=== PATIENT | male | born 1960 | race Caucasian/White ===

== ENCOUNTER 2017-07-27 12:32 | Inpatient (IN) | payer OTHER ==
[2017-07-27 13:03] VITALS: BMI 28.7
--- NOTE | 2017-07-27 15:03 | HP ---
CIWA Score - CIWA Score Nausea/Vomitin Muscle Tremors: 3 Anxiety: 3 Agitation: 2 Paroxysmal Sweats: 1-Minimal Palms Moist Orientation: 0-Oriented Tacttile Disturbances: 2-Mild Itch/Numbness/Burn Auditory Disturbances: 1-Very Mild Visual Disturbances: 0-None Headache: 2-Mild CIWA-Ar Total Score: 17 Admission ROS BHS - HPI Chief Complaint: i need help to stop drinking alcohol and cocaine Allergies/Adverse Reactions: Allergies Allergy/AdvReac Type Severity Reaction Status Date / Time No Known Allergies Allergy Verified 07/27/17 15:02 History of Present Illness: this 56 years old male with alcohol and cocaine dependence,seeking detox, withdrawal symptom,seen in er at [place] last night after episode of syncope abrasion of nasal area last detox 02/14 in [facility] nicotine dependence longest period of sobriety 4 years Exam Limitations: No Limitations - Ebola screening Have you traveled outside of the country in the last 21 days: No Have you been sick,other than usual withdrawal symptoms: No - Review of Systems Constitutional: Loss of Appetite, Malaise, Night Sweats, Changes in sleep EENT: reports: Nose Congestion Respiratory: reports: No Symptoms reported Cardiac: reports: No Symptoms Reported GI: reports: Diarrhea, Nausea, Vomiting : reports: No Symptoms Reported Musculoskeletal: reports: Back Pain, Muscle Pain Neuro: reports: Headache, Tremors Endocrine: reports: No Symptoms Reported Hematology: reports: No Symptoms Reported Psychiatric: reports: No Sypmtoms Reported, Judgement Intact, Mood/Affect Appropiate, Orientated x3, other (schizoaffective disorder) Patient History - Patient Medical History Hx Anemia: No Hx Asthma: No Hx Chronic Obstructive Pulmonary Disease (COPD): No Hx Cancer: No Hx Cardiac Disorders: No Hx Congestive Heart Failure: No Hx Hypertension: No Hx Hypercholesterolemia: Yes (on med) Hx Pacemaker: No HX Cerebrovascular Accident: No Hx Seizures: No Hx Dementia: No Hx Diabetes: No Hx Gastrointestinal Disorders: No Hx Liver Disease: No Hx Genitourinary Disorders: No Hx Sexually Transmitted Disorders: No Hx Renal Disease (ESRD): No Hx Thyroid Disease: No Hx Human Immunodeficiency Virus (HIV): No (last 04/17 negative) Hx Hepatitis C: No Hx Depression: Yes Hx Suicide Attempt: Yes (jump in the traffice last 3 months ago) Hx Bipolar Disorder: No Hx Schizophrenia: Yes (schizoaffective disorder) - Patient Surgical History Past Surgical History: Yes Other Surgical History: surgery for fx of right face in 2009 treated at [facility],hearing loss 25% - PPD History Previous Implant?: Yes Documented Results: Negative w/proof - Smoking Cessation Smoking history: Current every day smoker Have you smoked in the past 12 months: Yes Aproximately how many cigarettes per day: 10 Cigars Per Day: 0 Hx Chewing Tobacco Use: No Initiated information on smoking cessation: Yes 'Breaking Loose' booklet given: 07/27/17 - Substance & Tx. History Hx Alcohol Use: Yes Hx Substance Use: Yes Substance Use Type: Alcohol, Cocaine Hx Substance Use Treatment: Yes (last 02/14 [facility]) - Substances Abused Alcohol Route: Oral Frequency: Daily Amount used: i pint of bacardi/6 pack of 16 ozs of beer Age of first use: 20 Date of Last Use: 07/26/17 Cocaine Route: Smoking Frequency: 1-2 times per week Amount used: 300$ Age of first use: 25 Date of Last Use: 07/26/17 Family Disease History - Family Disease History Family History: Denies Family Disease History: Other: Father (), Mother () Admission Physical Exam S - Vital Signs Vital Signs: Vital Signs - 24 hr 07/27/17 12:59 Temperature 97.9 F Pulse Rate 80 Respiratory 18 Rate Blood Pressure 121/67 - Physical General Appearance: Yes: Within Normal Limits, Moderate Distress, Tremorous, Irritable, Sweating, Anxious HEENTM: Yes: Normal ENT Inspection, CT, Pharynx Normal, Other (abraion of nasal area) Respiratory: Yes: Lungs Clear, Normal Breath Sounds, No Respiratory Distress Neck: Yes: Within Normal Limits, Supple, Trachea in good position Breast: Yes: Within Normal Limits Cardiology: Yes: Within Normal Limits, Regular Rhythm, Regular Rate, S1, S2 Abdominal: Yes: Within Normal Limits, Normal Bowel Sounds, Non Tender Genitourinary: Yes: Within Normal Limits Back: Yes: Within Normal Limits, Normal Inspection, Muscle Spasm Extremities: Yes: Within Normal Limits, Normal Range of Motion, Tremors Neurological: Yes: covered button maker II-XII NML intact, Alert, Motor Strength 5/5 Integumentary: Yes: Dry Lymphatic: Yes: Within Normal Limits - Diagnostic (1) Alcohol dependence with uncomplicated withdrawal Current Visit: Yes Status: Acute (2) Cocaine dependence Current Visit: Yes Status: Acute (3) Syncope Current Visit: Yes Status: Acute (4) Abrasion of nose Current Visit: Yes Status: Acute (5) Blister of hand Current Visit: Yes Status: Acute (6) Schizoaffective disorder Current Visit: Yes Status: Acute (7) Nicotine dependence Current Visit: Yes Status: Acute Cleared for Admission [facility] - Detox or Rehab [facility] Level of Care: Medically Managed Detox Regimen/Protocol: Librium [facility] Breath Alcohol Content Breath Alcohol Content: 0 Urine Drug Screen - Results Drug Screen Negative: No Urine Drug Screen Results: ARNAUD-Cocaine
[2017-07-27] MEDS ORDERED: ACETAMINOPHEN 325 MG TABLET (FP) PO PRN (15:55)
[2017-07-27] MEDS ORDERED: hydrOXYzine PAMOATE 50 MG CAPSULE (FP) PO PRN (15:55)
[2017-07-27] MEDS ORDERED: MENTHOL/PHENOL 1 EACH UD MM PRN (15:55)
[2017-07-27] MEDS ORDERED: LOPERAMIDE HCL 2 MG CAPSULE PO PRN (15:55)
[2017-07-27] MEDS ORDERED: MAG HYDROX/AL HYDROX/SIMETH 30 ML UNIT-DOSE CUP PO PRN (15:55)
[2017-07-27] MEDS ORDERED: P-EPHED 60MG/TRIPROLIDI 2.5MG TABLET PO PRN (15:55)
[2017-07-27] MEDS ORDERED: MAGNESIUM HYDROX 2400MG/30ML ORAL SUSPENSION 30 ML CUP PO PRN (15:55)
[2017-07-27] MEDS ORDERED: MAGNESIUM CITRATE 300 ML BOTTLE PO PRN (15:55)
[2017-07-27] MEDS ORDERED: guaiFENesin/D-METHORPHAN HB 10 ML UNIT-DOSE CUPS PO PRN (15:55)
[2017-07-27] MEDS ORDERED: chlordiazePOXIDE HCL 25 MG CAPSULE PO PRN (15:55)
[2017-07-27] MEDS ORDERED: IBUPROFEN 400 MG TABLET (FP) PO PRN (15:55)
[2017-07-27] MEDS ORDERED: chlordiazePOXIDE HCL 25 MG CAPSULE PO ONE (17:15)
[2017-07-27] MEDS ORDERED: chlordiazePOXIDE HCL 25 MG CAPSULE ONE (19:26)
[2017-07-27] MEDS ORDERED: MELATONIN 5 MG TABLETS PO PRN (22:00)
[2017-07-27] MEDS: BACITRACIN 0.9 GM PACKET TP SCH (22:36)
[2017-07-27] MEDS: THIAMINE HCL 100 MG TABLET (FP) PO SCH (22:36)
[2017-07-27] MEDS: chlordiazePOXIDE HCL 25 MG CAPSULE PO SCH (22:36)
[2017-07-28] MEDS: chlordiazePOXIDE HCL 25 MG CAPSULE PO SCH ×4 (06:38→22:12)
[2017-07-28 09:51] LABS: URINE APPEARANCE CLEAR; URINE BILIRUBIN NEGATIVE (<2.0 mg/dL); URINE BLOOD NEGATIVE (NEGATIVE); URINE COLOR LTYELLOW; URINE GLUCOSE (UA) NEGATIVE (NEGATIVE); URINE KETONE NEGATIVE (NEGATIVE); URINE LEUK ESTERASE NEGATIVE (NEGATIVE); URINE NITRITE NEGATIVE (NEGATIVE); URINE PROTEIN NEGATIVE (NEGATIVE); URINE UROBILINOGEN NEGATIVE mg/dL (0.2-1.0)
[2017-07-28 09:55] LABS: HEMATOCRIT 39.9 % (35.4-49); HEMOGLOBIN 13.7 GM/dL (11.7-16.9); MCH 30.9 pg (25.7-33.7); MCHC 34.2 g/dl (32.0-35.9); MEAN CELL VOLUME 90.3 fl (80-96); PLATELET COUNT 159 K/MM3 (134-434); RBC 4.42 M/mm3 (4.00-5.60); RDW 15.6 % (11.9-15.9); WHITE BLOOD COUNT 5.9 K/mm3 (4.0-10.0)
[2017-07-28 10:05] LABS: ALBUMIN 2.8 g/dl (3.4-5.0); ANION GAP 5 (8-16); BLOOD UREA NITROGEN 19 mg/dL (7-18); CALCIUM 7.8 mg/dL (8.5-10.1); CHLORIDE 111 mmol/L (98-107); CO2 27 mmol/L (21-32); GLUCOSE,RANDOM 108 mg/dL (74-106); SODIUM 143 mmol/L (136-145)
[2017-07-28 10:10] LABS: ALK PHOS 85 U/L (45-117); BILIRUBIN,TOTAL 0.3 mg/dL (0.2-1.0); SGOT/AST 41 U/L (15-37); SGPT/ALT 29 U/L (12-78); TOT PROT 6.1 g/dl (6.4-8.2)
[2017-07-28] MEDS: PRENATAL VITAMINS W/ FOLIC ACID TABLET (FP) PO SCH (10:54)
[2017-07-28] MEDS: BACITRACIN 0.9 GM PACKET TP SCH ×2 (10:54→22:12)
--- NOTE | 2017-07-28 12:15 | PN ---
S CIWA - CIWA Score Nausea/Vomitin Muscle Tremors: 3 Anxiety: 3 Agitation: 2 Paroxysmal Sweats: 1-Minimal Palms Moist Orientation: 0-Oriented Tacttile Disturbances: 1-Very Mild Itch/Numbness Auditory Disturbances: 1-Very Mild Visual Disturbances: 0-None Headache: 2-Mild CIWA-Ar Total Score: 16 BHS Progress Note (SOAP) Subjective: ALERT,IRRITABLE,ANXIOUS,INTERRUPTED SLEEP,TREMOR Objective: 07/28/17 12:13 Vital Signs Temperature 98.2 F 07/28/17 09:54 Pulse Rate 97 H 07/28/17 09:54 Respiratory Rate 18 07/28/17 09:54 Blood Pressure 137/97 07/28/17 09:54 O2 Sat by Pulse Oximetry (%) EKG NSR,NORMAL ECG PROLONG QT 392/429 NO CHEST PAIN,NO SOB,NO DIZZINESS Laboratory Last Values WBC 5.9 K/mm3 (4.0-10.0) 07/28/17 07:00 RBC 4.42 M/mm3 (4.00-5.60) 07/28/17 07:00 Hgb 13.7 GM/dL (11.7-16.9) 07/28/17 07:00 Hct 39.9 % (35.4-49) 07/28/17 07:00 MCV 90.3 fl (80-96) 07/28/17 07:00 MCH 30.9 pg (25.7-33.7) 07/28/17 07:00 MCHC 34.2 g/dl (32.0-35.9) 07/28/17 07:00 RDW 15.6 % (11.9-15.9) 07/28/17 07:00 Plt Count 159 K/MM3 (134-434) 07/28/17 07:00 MPV 8.0 fl (7.5-11.1) 07/28/17 07:00 Sodium 143 mmol/L (136-145) 07/28/17 07:00 Potassium 4.0 mmol/L (3.5-5.1) 07/28/17 07:00 Chloride 111 mmol/L (98-107) H 07/28/17 07:00 Carbon Dioxide 27 mmol/L (21-32) 07/28/17 07:00 Anion Gap 5 (8-16) L 07/28/17 07:00 BUN 19 mg/dL (7-18) H 07/28/17 07:00 Creatinine 1.0 mg/dL (0.7-1.3) 07/28/17 07:00 Creat Clearance w eGFR > 60 (>60) 07/28/17 07:00 Random Glucose 108 mg/dL (74-106) H 07/28/17 07:00 Calcium 7.8 mg/dL (8.5-10.1) L 07/28/17 07:00 Total Bilirubin 0.3 mg/dL (0.2-1.0) 07/28/17 07:00 AST 41 U/L (15-37) H 07/28/17 07:00 ALT 29 U/L (12-78) 07/28/17 07:00 Alkaline Phosphatase 85 U/L (45-117) 07/28/17 07:00 Total Protein 6.1 g/dl (6.4-8.2) L 07/28/17 07:00 Albumin 2.8 g/dl (3.4-5.0) L 07/28/17 07:00 Urine Color Ltyellow 07/28/17 07:00 Urine Appearance Clear 07/28/17 07:00 Urine pH 6.0 (5.0-8.0) 07/28/17 07:00 Ur Specific [place] 1.023 (1.001-1.035) 07/28/17 07:00 Urine Protein Negative (NEGATIVE) 07/28/17 07:00 Urine Glucose (UA) Negative (NEGATIVE) 07/28/17 07:00 Urine Ketones Negative (NEGATIVE) 07/28/17 07:00 Urine Blood Negative (NEGATIVE) 07/28/17 07:00 Urine Nitrite Negative (NEGATIVE) 07/28/17 07:00 Urine Bilirubin Negative (<2.0 mg/dL) 07/28/17 07:00 Urine Urobilinogen Negative mg/dL (0.2-1.0) 07/28/17 07:00 Ur Leukocyte Esterase Negative (NEGATIVE) 07/28/17 07:00 RPR Titer Nonreactive (NONREACTIVE) 07/28/17 07:00 Assessment: 07/28/17 12:15 WITHDRAWAL SYMPTOM Plan: CONTINUE DETOX
--- NOTE | 2017-07-28 12:29 | EKG ---
Test Reason : Blood Pressure : / mmHG Vent. Rate : 072 BPM Atrial Rate : 072 BPM P-R Int : 114 ms QRS Dur : 084 ms QT Int : 392 ms P-R-T Axes : 064 040 039 degrees QTc Int : 429 ms NORMAL SINUS RHYTHM NORMAL ECG NO PREVIOUS ECGS AVAILABLE Confirmed by CLAUDETTE HYATT MD ([id number]) on 07/28/2017 12:29:01 PM Referred By: Luis Fernando Oliveros Confirmed By:CLAUDETTE HYATT MD
--- NOTE | 2017-07-28 16:58 | CONSULT ---
[facility] Psychiatric Consult - Data Date of interview: 07/28/17 Admission source: [facility] Identifying data: First admission to [facility] for this 56 y/o male seeking detox treatment on for alcohol and cocaine dependence.Patient is single without children,homeless,unemployed and supported on SSI benefits. Substance Abuse History: Confirmed by patient.Details in current [facility] report : Smoking history: Current every day smoker. Have you smoked in the past 12 months: Yes. Aproximately how many cigarettes per day: 10. Cigars Per Day: 0. Hx Chewing Tobacco Use: No. Initiated information on smoking cessation: Yes. 'Breaking Loose' booklet given: 07/27/17. - Substance & Tx. History. Hx Alcohol Use: Yes. Hx Substance Use: Yes. Substance Use Type: Alcohol, Cocaine. Hx Substance Use Treatment: Yes (last 02/14 [facility]). - Substances Abused. Alcohol. Route: Oral. Frequency: Daily. Amount used: i pint of bacardi/6 pack of 16 ozs of beer. Age of first use: 20. Date of Last Use: 07/26/17. Cocaine. Route: Smoking. Frequency: 1-2 times per week. Amount used: 300$. Age of first use: 25. Date of Last Use: 07/26/17 Medical History: Patient endorses good general health.Noted history of dyslipidemia. Psychiatric History: History of 5-7 psychiatric hospitalizations ([facility]).Patient endorses the diagnosis of Schizoaffective Disorder.Prescribed abilify + zoloft + cogentin (no recall of doses).Mr Jenkins states that he is followed at [facility] in the [place].Presents with history of suicide attempts via deliberate jump into oncoming traffic (three months ago) and into the [place] (saved by [facility] and [facility]). Physical/Sexual Abuse/Trauma History: Not discussed.Patient declined. Additional Comment: Urine Drug Screen Results: ARNAUD-Cocaine.Noted. Mental Status Exam - Mental Status Exam Alert and Oriented to: Time, Place, Person Cognitive Function: Good Patient Appearance: Well Groomed Mood: Withdrawn (neutral) Affect: Appropriate, Normal Range Patient Behavior: Cooperative Speech Pattern: Clear Voice Loudness: Normal Thought Process: Intact, Goal Oriented Thought Disorder: Not Present Hallucinations: Denies Suicidal Ideation: Denies Homicidal Ideation: Denies Insight/Judgement: Poor Sleep: Well Appetite: Good Muscle strength/Tone: Normal Gait/Station: Normal Psychiatric Findings - Problem List ([place] 1, 2,3) (1) Alcohol dependence with uncomplicated withdrawal Status: Acute (2) Cocaine dependence Status: Acute (3) Nicotine dependence Status: Acute (4) Schizoaffective disorder Status: Chronic - Initial Treatment Plan Initial Treatment Plan: Psychoeducation.Detoxification.Medications : zoloft 50 mg po daily + cogentin 0.5 mg po daily + abilify 10 mg po daily.Side effects/ benefits of each medication are discussed with the patient.Mr Jenkins agrees with this plan of care.Observation.
[2017-07-28] MEDS: THIAMINE HCL 100 MG TABLET (FP) PO SCH (22:12)
[2017-07-29] MEDS: chlordiazePOXIDE HCL 25 MG CAPSULE PO SCH ×3 (05:40→18:01)
[2017-07-29] MEDS: ARIPiprazole 10 MG TABLET PO SCH (10:24)
[2017-07-29] MEDS: SERTRALINE HCL 50 MG TABLET (FP) PO SCH (10:24)
[2017-07-29] MEDS: BACITRACIN 0.9 GM PACKET TP SCH ×2 (10:24→22:13)
[2017-07-29] MEDS: PRENATAL VITAMINS W/ FOLIC ACID TABLET (FP) PO SCH (10:24)
[2017-07-29] MEDS: BENZTROPINE MESYLATE 0.5 MG TABLET (FP) PO SCH (11:00)
--- NOTE | 2017-07-29 11:58 | PN ---
S CIWA - CIWA Score Nausea/Vomitin Muscle Tremors: 3 Anxiety: 3 Agitation: 2 Paroxysmal Sweats: 1-Minimal Palms Moist Orientation: 0-Oriented Tacttile Disturbances: 1-Very Mild Itch/Numbness Auditory Disturbances: 1-Very Mild Visual Disturbances: 0-None Headache: 2-Mild CIWA-Ar Total Score: 16 BHS Progress Note (SOAP) Subjective: ALERT,IRRITABLE,ANXIOUS,INTERRUPTED SLEEP,PAIN IN THE BODY AND BACK Objective: 07/29/17 11:56 Vital Signs Temperature 97.5 F L 07/29/17 10:32 Pulse Rate 72 07/29/17 10:32 Respiratory Rate 18 07/29/17 10:32 Blood Pressure 117/71 07/29/17 10:32 O2 Sat by Pulse Oximetry (%) Laboratory Last Values WBC 5.9 K/mm3 (4.0-10.0) 07/28/17 07:00 RBC 4.42 M/mm3 (4.00-5.60) 07/28/17 07:00 Hgb 13.7 GM/dL (11.7-16.9) 07/28/17 07:00 Hct 39.9 % (35.4-49) 07/28/17 07:00 MCV 90.3 fl (80-96) 07/28/17 07:00 MCH 30.9 pg (25.7-33.7) 07/28/17 07:00 MCHC 34.2 g/dl (32.0-35.9) 07/28/17 07:00 RDW 15.6 % (11.9-15.9) 07/28/17 07:00 Plt Count 159 K/MM3 (134-434) 07/28/17 07:00 MPV 8.0 fl (7.5-11.1) 07/28/17 07:00 Sodium 143 mmol/L (136-145) 07/28/17 07:00 Potassium 4.0 mmol/L (3.5-5.1) 07/28/17 07:00 Chloride 111 mmol/L (98-107) H 07/28/17 07:00 Carbon Dioxide 27 mmol/L (21-32) 07/28/17 07:00 Anion Gap 5 (8-16) L 07/28/17 07:00 BUN 19 mg/dL (7-18) H 07/28/17 07:00 Creatinine 1.0 mg/dL (0.7-1.3) 07/28/17 07:00 Creat Clearance w eGFR > 60 (>60) 07/28/17 07:00 Random Glucose 108 mg/dL (74-106) H 07/28/17 07:00 Calcium 7.8 mg/dL (8.5-10.1) L 07/28/17 07:00 Total Bilirubin 0.3 mg/dL (0.2-1.0) 07/28/17 07:00 AST 41 U/L (15-37) H 07/28/17 07:00 ALT 29 U/L (12-78) 07/28/17 07:00 Alkaline Phosphatase 85 U/L (45-117) 07/28/17 07:00 Total Protein 6.1 g/dl (6.4-8.2) L 07/28/17 07:00 Albumin 2.8 g/dl (3.4-5.0) L 07/28/17 07:00 Urine Color Ltyellow 07/28/17 07:00 Urine Appearance Clear 07/28/17 07:00 Urine pH 6.0 (5.0-8.0) 07/28/17 07:00 Ur Specific [place] 1.023 (1.001-1.035) 07/28/17 07:00 Urine Protein Negative (NEGATIVE) 07/28/17 07:00 Urine Glucose (UA) Negative (NEGATIVE) 07/28/17 07:00 Urine Ketones Negative (NEGATIVE) 07/28/17 07:00 Urine Blood Negative (NEGATIVE) 07/28/17 07:00 Urine Nitrite Negative (NEGATIVE) 07/28/17 07:00 Urine Bilirubin Negative (<2.0 mg/dL) 07/28/17 07:00 Urine Urobilinogen Negative mg/dL (0.2-1.0) 07/28/17 07:00 Ur Leukocyte Esterase Negative (NEGATIVE) 07/28/17 07:00 RPR Titer Nonreactive (NONREACTIVE) 07/28/17 07:00 Assessment: 07/29/17 11:57 WITHDRAWAL SYMPTOM Plan: CONTINUE DETOX
[2017-07-29] MEDS: chlordiazePOXIDE 5 MG CAPSULE PO SCH (22:13)
[2017-07-29] MEDS: THIAMINE HCL 100 MG TABLET (FP) PO SCH (22:14)
[2017-07-30] MEDS: chlordiazePOXIDE 5 MG CAPSULE PO SCH ×3 (06:00→17:18)
[2017-07-30] MEDS: SERTRALINE HCL 50 MG TABLET (FP) PO SCH (10:05)
[2017-07-30] MEDS: PRENATAL VITAMINS W/ FOLIC ACID TABLET (FP) PO SCH (10:05)
[2017-07-30] MEDS: ARIPiprazole 10 MG TABLET PO SCH (10:05)
[2017-07-30] MEDS: BACITRACIN 0.9 GM PACKET TP SCH ×2 (10:05→22:32)
[2017-07-30] MEDS: BENZTROPINE MESYLATE 0.5 MG TABLET (FP) PO SCH (10:06)
--- NOTE | 2017-07-30 10:35 | PN ---
S Progress Note (SOAP) Subjective: ALERT,IRRITABLE,ANXIOUS,INTERRUPTED SLEEP Objective: 07/30/17 10:33 Vital Signs Temperature 97.7 F 07/30/17 09:24 Pulse Rate 85 07/30/17 09:24 Respiratory Rate 18 07/30/17 09:24 Blood Pressure 124/67 07/30/17 09:24 O2 Sat by Pulse Oximetry (%) Laboratory Last Values WBC 5.9 K/mm3 (4.0-10.0) 07/28/17 07:00 RBC 4.42 M/mm3 (4.00-5.60) 07/28/17 07:00 Hgb 13.7 GM/dL (11.7-16.9) 07/28/17 07:00 Hct 39.9 % (35.4-49) 07/28/17 07:00 MCV 90.3 fl (80-96) 07/28/17 07:00 MCH 30.9 pg (25.7-33.7) 07/28/17 07:00 MCHC 34.2 g/dl (32.0-35.9) 07/28/17 07:00 RDW 15.6 % (11.9-15.9) 07/28/17 07:00 Plt Count 159 K/MM3 (134-434) 07/28/17 07:00 MPV 8.0 fl (7.5-11.1) 07/28/17 07:00 Sodium 143 mmol/L (136-145) 07/28/17 07:00 Potassium 4.0 mmol/L (3.5-5.1) 07/28/17 07:00 Chloride 111 mmol/L (98-107) H 07/28/17 07:00 Carbon Dioxide 27 mmol/L (21-32) 07/28/17 07:00 Anion Gap 5 (8-16) L 07/28/17 07:00 BUN 19 mg/dL (7-18) H 07/28/17 07:00 Creatinine 1.0 mg/dL (0.7-1.3) 07/28/17 07:00 Creat Clearance w eGFR > 60 (>60) 07/28/17 07:00 Random Glucose 108 mg/dL (74-106) H 07/28/17 07:00 Calcium 7.8 mg/dL (8.5-10.1) L 07/28/17 07:00 Total Bilirubin 0.3 mg/dL (0.2-1.0) 07/28/17 07:00 AST 41 U/L (15-37) H 07/28/17 07:00 ALT 29 U/L (12-78) 07/28/17 07:00 Alkaline Phosphatase 85 U/L (45-117) 07/28/17 07:00 Total Protein 6.1 g/dl (6.4-8.2) L 07/28/17 07:00 Albumin 2.8 g/dl (3.4-5.0) L 07/28/17 07:00 Urine Color Ltyellow 07/28/17 07:00 Urine Appearance Clear 07/28/17 07:00 Urine pH 6.0 (5.0-8.0) 07/28/17 07:00 Ur Specific [place] 1.023 (1.001-1.035) 07/28/17 07:00 Urine Protein Negative (NEGATIVE) 07/28/17 07:00 Urine Glucose (UA) Negative (NEGATIVE) 07/28/17 07:00 Urine Ketones Negative (NEGATIVE) 07/28/17 07:00 Urine Blood Negative (NEGATIVE) 07/28/17 07:00 Urine Nitrite Negative (NEGATIVE) 07/28/17 07:00 Urine Bilirubin Negative (<2.0 mg/dL) 07/28/17 07:00 Urine Urobilinogen Negative mg/dL (0.2-1.0) 07/28/17 07:00 Ur Leukocyte Esterase Negative (NEGATIVE) 07/28/17 07:00 RPR Titer Nonreactive (NONREACTIVE) 07/28/17 07:00 Assessment: 07/30/17 10:34 WITHDRAWAL SYMPTOM Plan: CONTINUE DETOX,DISCHARGE IN AM
[2017-07-30] MEDS: THIAMINE HCL 100 MG TABLET (FP) PO SCH (22:32)
[2017-07-30] MEDS: chlordiazePOXIDE HCL 10 MG CAPSULE PO SCH (22:32)
[2017-07-31] MEDS: chlordiazePOXIDE HCL 10 MG CAPSULE PO SCH ×3 (06:42→18:07)
--- NOTE | 2017-07-31 08:33 | PN ---
S Progress Note (SOAP) Subjective: ALERT,NO COMPLAINT Objective: 07/31/17 08:29 Vital Signs Temperature 99.7 F H 07/30/17 22:07 Pulse Rate 86 07/30/17 22:07 Respiratory Rate 18 07/31/17 03:30 Blood Pressure 130/69 07/30/17 22:07 O2 Sat by Pulse Oximetry (%) Assessment: 07/31/17 08:29 DETOX COMPLETED,NO WITHDRAWAL SYMPTOM Plan: DISCHARGE TODAY,FOLLOW UP WITH AFTER CARE PROGRAM ARRANGEMENT
--- NOTE | 2017-07-31 08:38 | DS ---
[facility] Detox Discharge Summary Admission Date: 07/27/17 Discharge Date: 07/31/17 - History Present History: Alcohol Dependence, Cocaine Dependence Additional Comments: FOLLOW UP WITH AFTER CARE PROGRAM ARRANGEMENT Pertinent Past History: SYNCOPE ABRASION OF NOSE BLISTERS OF BOTH HANDS NICOTINE DEPENDENCE SCHIZOAFFECTVE DISORDER - Physical Exam Results Vital Signs: Vital Signs Temperature 99.7 F H 07/30/17 22:07 Pulse Rate 86 07/30/17 22:07 Respiratory Rate 18 07/31/17 03:30 Blood Pressure 130/69 07/30/17 22:07 O2 Sat by Pulse Oximetry (%) Pertinent Admission Physical Exam Findings: WITHDRAWAL SIGNS AND SYMPTOM Vital Signs Temperature 99.7 F H 07/30/17 22:07 Pulse Rate 86 07/30/17 22:07 Respiratory Rate 18 07/31/17 03:30 Blood Pressure 130/69 07/30/17 22:07 O2 Sat by Pulse Oximetry (%) Laboratory Last Values WBC 5.9 K/mm3 (4.0-10.0) 07/28/17 07:00 RBC 4.42 M/mm3 (4.00-5.60) 07/28/17 07:00 Hgb 13.7 GM/dL (11.7-16.9) 07/28/17 07:00 Hct 39.9 % (35.4-49) 07/28/17 07:00 MCV 90.3 fl (80-96) 07/28/17 07:00 MCH 30.9 pg (25.7-33.7) 07/28/17 07:00 MCHC 34.2 g/dl (32.0-35.9) 07/28/17 07:00 RDW 15.6 % (11.9-15.9) 07/28/17 07:00 Plt Count 159 K/MM3 (134-434) 07/28/17 07:00 MPV 8.0 fl (7.5-11.1) 07/28/17 07:00 Sodium 143 mmol/L (136-145) 07/28/17 07:00 Potassium 4.0 mmol/L (3.5-5.1) 07/28/17 07:00 Chloride 111 mmol/L (98-107) H 07/28/17 07:00 Carbon Dioxide 27 mmol/L (21-32) 07/28/17 07:00 Anion Gap 5 (8-16) L 07/28/17 07:00 BUN 19 mg/dL (7-18) H 07/28/17 07:00 Creatinine 1.0 mg/dL (0.7-1.3) 07/28/17 07:00 Creat Clearance w eGFR > 60 (>60) 07/28/17 07:00 Random Glucose 108 mg/dL (74-106) H 07/28/17 07:00 Calcium 7.8 mg/dL (8.5-10.1) L 07/28/17 07:00 Total Bilirubin 0.3 mg/dL (0.2-1.0) 07/28/17 07:00 AST 41 U/L (15-37) H 07/28/17 07:00 ALT 29 U/L (12-78) 07/28/17 07:00 Alkaline Phosphatase 85 U/L (45-117) 07/28/17 07:00 Total Protein 6.1 g/dl (6.4-8.2) L 07/28/17 07:00 Albumin 2.8 g/dl (3.4-5.0) L 07/28/17 07:00 Urine Color Ltyellow 07/28/17 07:00 Urine Appearance Clear 07/28/17 07:00 Urine pH 6.0 (5.0-8.0) 07/28/17 07:00 Ur Specific [place] 1.023 (1.001-1.035) 07/28/17 07:00 Urine Protein Negative (NEGATIVE) 07/28/17 07:00 Urine Glucose (UA) Negative (NEGATIVE) 07/28/17 07:00 Urine Ketones Negative (NEGATIVE) 07/28/17 07:00 Urine Blood Negative (NEGATIVE) 07/28/17 07:00 Urine Nitrite Negative (NEGATIVE) 07/28/17 07:00 Urine Bilirubin Negative (<2.0 mg/dL) 07/28/17 07:00 Urine Urobilinogen Negative mg/dL (0.2-1.0) 07/28/17 07:00 Ur Leukocyte Esterase Negative (NEGATIVE) 07/28/17 07:00 RPR Titer Nonreactive (NONREACTIVE) 07/28/17 07:00 - Treatment Hospital Course: Detox Protocol Followed, Detoxed Safely, Responded well, Discharged Condition Good, Rehab Referral Accepted Patient has Accepted a Rehab Referral to: [facility] - Medication Discharge Medications: Ambulatory Orders Aripiprazole 10 mg PO DAILY 07/27/17 Benztropine Mesylate 1 mg PO DAILY 07/27/17 Diphenhydramine [Benadryl -] 50 mg PO HS 07/27/17 Sertraline HCl 50 mg PO DAILY 07/27/17 Aripiprazole [Abilify -] 10 mg PO DAILY #30 tablet 07/29/17 Benztropine Mesylate [Cogentin -] 0.5 mg PO DAILY #30 tablet 07/29/17 Sertraline HCl [Zoloft -] 50 mg PO DAILY #30 tablet 07/29/17 - Diagnosis (1) Alcohol dependence with uncomplicated withdrawal Current Visit: Yes Status: Acute (2) Cocaine dependence Current Visit: Yes Status: Acute (3) Syncope Current Visit: Yes Status: Acute (4) Abrasion of nose Current Visit: Yes Status: Acute (5) Blister of hand Current Visit: Yes Status: Acute (6) Schizoaffective disorder Current Visit: Yes Status: Chronic (7) Nicotine dependence Current Visit: Yes Status: Acute - AMA Did Patient Leave Against Medical Advice: No
[2017-07-31] MEDS: BENZTROPINE MESYLATE 0.5 MG TABLET (FP) PO SCH (10:43)
[2017-07-31] MEDS: PRENATAL VITAMINS W/ FOLIC ACID TABLET (FP) PO SCH (10:43)
[2017-07-31] MEDS: SERTRALINE HCL 50 MG TABLET (FP) PO SCH (10:43)
[2017-07-31] MEDS: BACITRACIN 0.9 GM PACKET TP SCH (10:43)
[2017-07-31] MEDS: ARIPiprazole 10 MG TABLET PO SCH (10:43)
[2017-07-31 17:57] VITALS: BP 130/68; PULSE 79; TEMP 98.2
== END 2017-07-31 18:50 | disposition home or self-care (01) | DRG 774 ==
LOC: YASAS 12:32 → Y6N 17:09
PROVIDERS: ADMIT Internal Medicine; ATTEND Internal Medicine
PROC: HZ2ZZZZ Detoxification Services for Substance Abuse Treatment (ICD-10-PCS; principal; 2017-07-27)
DX: F10.230 Alcohol dependence with withdrawal, uncomplicated (principal); F14.20 Cocaine dependence, uncomplicated; F17.210 Nicotine dependence, cigarettes, uncomplicated; F25.9 Schizoaffective disorder, unspecified; F32.9 Major depressive disorder, single episode, unspecified; E78.00 Pure hypercholesterolemia, unspecified; S60.529A Blister (nonthermal) of unspecified hand, initial encounter; S00.31XA Abrasion of nose, initial encounter; Z91.5 Personal history of self-harm; Z59.0 Homelessness
CPT/HCPCS: 36415; 80053; 81003; 85027; 86593; 93005; 93010

== ENCOUNTER 2017-07-31 18:58 | Inpatient (IN) | payer OTHER ==
[2017-07-31] MEDS ORDERED: P-EPHED 60MG/TRIPROLIDI 2.5MG TABLET PO PRN (20:22)
[2017-07-31] MEDS ORDERED: MENTHOL/PHENOL 1 EACH UD MM PRN (20:22)
[2017-07-31] MEDS ORDERED: MAGNESIUM HYDROX 2400MG/30ML ORAL SUSPENSION 30 ML CUP PO PRN (20:22)
[2017-07-31] MEDS ORDERED: IBUPROFEN 400 MG TABLET (FP) PO PRN (20:22)
[2017-07-31] MEDS ORDERED: hydrOXYzine PAMOATE 50 MG CAPSULE (FP) PO PRN (20:22)
[2017-07-31] MEDS ORDERED: guaiFENesin/D-METHORPHAN HB 10 ML UNIT-DOSE CUPS PO PRN (20:22)
[2017-07-31] MEDS ORDERED: MAG HYDROX/AL HYDROX/SIMETH 30 ML UNIT-DOSE CUP PO PRN (20:22)
[2017-07-31] MEDS ORDERED: MAGNESIUM CITRATE 300 ML BOTTLE PO PRN (20:22)
[2017-07-31] MEDS ORDERED: LOPERAMIDE HCL 2 MG CAPSULE PO PRN (20:22)
[2017-07-31] MEDS ORDERED: ACETAMINOPHEN 325 MG TABLET (FP) PO PRN (20:22)
--- NOTE | 2017-07-31 20:25 | HP ---
[facility] Re[facility] Assess/Revision - Admission History Admitted to Rehab from: [facility] Date of Admission to Rehab: 07/31/17 - Findings Detox History & Physical reviewed: Yes Concur with findings: Yes Inpatient Rehab Admission - Initial Determination Are CD services needed?: Yes Free of communicable disease: Yes Not in need of hospitalization: Yes - Rehab Admission Criteria Previous failed treatment: Yes Poor recovery environment: Yes Comorbidities: Yes Lacks judgement: Yes Patient is meeting Inpatient Rehab admission criteria:: Yes
[2017-07-31] MEDS: diphenhydrAMINE HCL 50 MG CAPSULE PO SCH (21:59)
[2017-07-31] MEDS: THIAMINE HCL 100 MG TABLET (FP) PO SCH (21:59)
[2017-07-31] MEDS ORDERED: MELATONIN 5 MG TABLETS PO PRN (22:00)
[2017-08-01] MEDS: PRENATAL VITAMINS W/ FOLIC ACID TABLET (FP) PO SCH (10:13)
[2017-08-01] MEDS: NICOTINE 14 MG/24 HOURS TOPICAL PATCH TD SCH (10:13)
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
[2017-08-01] MEDS ORDERED: BENZTROPINE MESYLATE 0.5 MG TABLET (FP) PO SCH (12:45)
[2017-08-01] MEDS: ARIPiprazole 10 MG TABLET PO SCH (12:52)
[2017-08-01] MEDS: SERTRALINE HCL 50 MG TABLET (FP) PO SCH (12:52)
[2017-08-01] MEDS: diphenhydrAMINE HCL 50 MG CAPSULE PO SCH (21:32)
[2017-08-01] MEDS: THIAMINE HCL 100 MG TABLET (FP) PO SCH (21:32)
[2017-08-02] MEDS: ARIPiprazole 10 MG TABLET PO SCH (10:11)
[2017-08-02] MEDS: PRENATAL VITAMINS W/ FOLIC ACID TABLET (FP) PO SCH (10:11)
[2017-08-02] MEDS: BENZTROPINE MESYLATE 1 MG TABLET (FP) PO SCH (10:11)
[2017-08-02] MEDS: SERTRALINE HCL 50 MG TABLET (FP) PO SCH (10:11)
[2017-08-02] MEDS: NICOTINE 14 MG/24 HOURS TOPICAL PATCH TD SCH (10:12)
[2017-08-02] MEDS: THIAMINE HCL 100 MG TABLET (FP) PO SCH (21:39)
[2017-08-02] MEDS: diphenhydrAMINE HCL 50 MG CAPSULE PO SCH (21:39)
[2017-08-03] MEDS: SERTRALINE HCL 50 MG TABLET (FP) PO SCH (10:23)
[2017-08-03] MEDS: ARIPiprazole 10 MG TABLET PO SCH (10:23)
[2017-08-03] MEDS: PRENATAL VITAMINS W/ FOLIC ACID TABLET (FP) PO SCH (10:23)
[2017-08-03] MEDS: BENZTROPINE MESYLATE 1 MG TABLET (FP) PO SCH (10:23)
[2017-08-03] MEDS: NICOTINE 14 MG/24 HOURS TOPICAL PATCH TD SCH (10:24)
[2017-08-03] MEDS: NICOTINE POLACRILEX 2 MG GUM BUC PRN (10:25)
[2017-08-03] MEDS: THIAMINE HCL 100 MG TABLET (FP) PO SCH (21:47)
[2017-08-03] MEDS: diphenhydrAMINE HCL 50 MG CAPSULE PO SCH (21:47)
[2017-08-04] MEDS: BENZTROPINE MESYLATE 1 MG TABLET (FP) PO SCH (10:17)
[2017-08-04] MEDS: ARIPiprazole 10 MG TABLET PO SCH (10:17)
[2017-08-04] MEDS: SERTRALINE HCL 50 MG TABLET (FP) PO SCH (10:17)
[2017-08-04] MEDS: NICOTINE 14 MG/24 HOURS TOPICAL PATCH TD SCH (10:17)
[2017-08-04] MEDS: PRENATAL VITAMINS W/ FOLIC ACID TABLET (FP) PO SCH (10:17)
[2017-08-04] MEDS: diphenhydrAMINE HCL 50 MG CAPSULE PO SCH (22:04)
[2017-08-04] MEDS: THIAMINE HCL 100 MG TABLET (FP) PO SCH (22:04)
[2017-08-05] MEDS: ARIPiprazole 10 MG TABLET PO SCH (10:17)
[2017-08-05] MEDS: BENZTROPINE MESYLATE 1 MG TABLET (FP) PO SCH (10:17)
[2017-08-05] MEDS: NICOTINE 14 MG/24 HOURS TOPICAL PATCH TD SCH (10:18)
[2017-08-05] MEDS: PRENATAL VITAMINS W/ FOLIC ACID TABLET (FP) PO SCH (10:18)
[2017-08-05] MEDS: SERTRALINE HCL 50 MG TABLET (FP) PO SCH (10:18)
[2017-08-05] MEDS: THIAMINE HCL 100 MG TABLET (FP) PO SCH (21:46)
[2017-08-05] MEDS: diphenhydrAMINE HCL 50 MG CAPSULE PO SCH (21:46)
[2017-08-06] MEDS: ARIPiprazole 10 MG TABLET PO SCH (10:35)
[2017-08-06] MEDS: BENZTROPINE MESYLATE 1 MG TABLET (FP) PO SCH (10:35)
[2017-08-06] MEDS: PRENATAL VITAMINS W/ FOLIC ACID TABLET (FP) PO SCH (10:35)
[2017-08-06] MEDS: SERTRALINE HCL 50 MG TABLET (FP) PO SCH (10:35)
[2017-08-06] MEDS: NICOTINE 14 MG/24 HOURS TOPICAL PATCH TD SCH (10:35)
[2017-08-06] MEDS: diphenhydrAMINE HCL 50 MG CAPSULE PO SCH (21:53)
[2017-08-06] MEDS: THIAMINE HCL 100 MG TABLET (FP) PO SCH (21:53)
[2017-08-07] MEDS: BENZTROPINE MESYLATE 1 MG TABLET (FP) PO SCH (10:39)
[2017-08-07] MEDS: ARIPiprazole 10 MG TABLET PO SCH (10:39)
[2017-08-07] MEDS: PRENATAL VITAMINS W/ FOLIC ACID TABLET (FP) PO SCH (10:39)
[2017-08-07] MEDS: SERTRALINE HCL 50 MG TABLET (FP) PO SCH (10:39)
[2017-08-07] MEDS: NICOTINE 14 MG/24 HOURS TOPICAL PATCH TD SCH (10:40)
[2017-08-07] MEDS: diphenhydrAMINE HCL 50 MG CAPSULE PO SCH (21:56)
[2017-08-07] MEDS: THIAMINE HCL 100 MG TABLET (FP) PO SCH (21:56)
[2017-08-08 06:55] VITALS: BP 142/76; PULSE 74; TEMP 98.5
--- NOTE | 2017-08-08 10:23 | PN ---
Psychiatric Progress Note Vital Signs: Vital Signs Period Temp Pulse Resp BP Sys/Downing Pulse Ox Last 24 Hr 98.5 F 74 17-18 142/76 Date of Session: 08/08/17 Chief Complaint:: Discharge Note HPI: Patient addressing Alcoholand Cocaine dependence comorbid with Nicotine Dependence, Schizoaffective Disorder and Substance-Induced Mood disorder ROS: Right hearing loss, HLD Current Medications: Active Medications Generic Name Dose Route Start Last Admin Trade Name Freq PRN Reason Stop Dose Admin Acetaminophen 650 mg 07/31/17 20:22 Tylenol - PO Q4H PRN FEVER Al Hydroxide/Mg Hydroxide 30 ml 07/31/17 20:22 Mylanta Oral Suspension - PO Q6H PRN DYSPEPSIA Aripiprazole 10 mg 08/01/17 12:45 08/07/17 10:39 Abilify PO 10 mg DAILY ROBERT Administration Benztropine Mesylate 0.5 mg 08/01/17 12:45 08/07/17 10:39 Cogentin - PO 0.5 mg DAILY ROBERT Administration Diphenhydramine HCl 50 mg 07/31/17 22:00 08/07/17 21:56 Benadryl - PO Not Given HS ROBERT Eucalyptus/Menthol/Phenol/Sorbitol 1 each 07/31/17 20:22 Cepastat Lozenge - MM Q4H PRN SORE THROAT Guaifenesin 10 ml 07/31/17 20:22 Robitussin Dm - PO Q6H PRN COUGH Hydroxyzine Pamoate 50 mg 07/31/17 20:22 Vistaril - PO Q4H PRN AGITATION Ibuprofen 400 mg 07/31/17 20:22 Motrin - PO Q6H PRN Pain Level 4-6 Loperamide HCl 4 mg 07/31/17 20:22 Imodium - PO Q6H PRN DIARRHEA Magnesium Citrate 300 ml 07/31/17 20:22 Citroma - PO Q48H PRN CONSTIPATION Magnesium Hydroxide 30 ml 07/31/17 20:22 Milk Of Magnesia - PO DAILY PRN CONSTIPATION Melatonin 5 mg 07/31/17 22:00 Melatonin PO HS PRN INSOMNIA Nicotine 14 mg 08/01/17 10:00 08/07/17 10:40 Nicoderm Patch - TD Not Given DAILY ROBERT Nicotine Polacrilex 2 mg 07/31/17 20:23 08/03/17 10:25 Nicorette Gum - BUC 2 mg Q2H PRN Administration NICOTINE REPLACEMENT RX Multivit/Folic Acid/Iron 1 tab 08/01/17 10:00 08/07/17 10:39 Vitamins (Sjr) - PO 1 tab DAILY ROBERT Administration Pseudoephedrine/Triprolidine 1 combo 07/31/17 20:22 Actifed - PO TID PRN NASAL CONGESTION Sertraline HCl 50 mg 08/01/17 13:00 08/07/17 10:39 Zoloft - PO 50 mg DAILY ROBERT Administration Thiamine HCl 100 mg 07/31/17 22:00 08/07/17 21:56 Vitamin B1 - PO Not Given HS ROBERT Current Side Effect: No Lab tests ordered: Yes Lab tests reviewed: Yes Provider note:: Patient has completed this program today. He has partially met his treatment goals and will continue to address his issues in outpatient treatment at [facility]. 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 He responded well to Zoloft 50 mg po daily, Abilify 10 mg po daily and Cogentin 0.5 mg po daily. Scripts for 30 days supply will be electronically transmitted to [facility] at [address] [place] [id number]. He is stable for discharge today Total face to face time:: 35 Mental Status Exam - Mental Status Exam Alert and Oriented to: Time, Place, Person Cognitive Function: Fair Patient Appearance: Well Groomed Mood: Hopeful, Euthymic Affect: Appropriate Patient Behavior: Cooperative Speech Pattern: Clear Voice Loudness: Normal Thought Process: Intact Thought Disorder: Not Present Hallucinations: Denies Suicidal Ideation: Denies Homicidal Ideation: Denies Insight/Judgement: Fair Sleep: Fair Appetite: Good Muscle strength/Tone: Normal Gait/Station: Normal Psychiatric Treatment Plan - Problem List (1) Alcohol dependence Current Visit: Yes (2) Cocaine dependence Current Visit: Yes (3) Nicotine dependence Current Visit: No (4) Schizoaffective disorder Current Visit: Yes (5) Substance induced mood disorder Current Visit: Yes (6) Hearing loss, right Current Visit: No (7) Dyslipidemia Current Visit: Yes Initial treatment plan: Patient is discharged today and referred back to [facility] for outpatient treatment
[2017-08-08] MEDS: BENZTROPINE MESYLATE 1 MG TABLET (FP) PO SCH (10:27)
[2017-08-08] MEDS: SERTRALINE HCL 50 MG TABLET (FP) PO SCH (10:27)
[2017-08-08] MEDS: ARIPiprazole 10 MG TABLET PO SCH (10:27)
[2017-08-08] MEDS: PRENATAL VITAMINS W/ FOLIC ACID TABLET (FP) PO SCH (10:28)
[2017-08-08] MEDS: NICOTINE 14 MG/24 HOURS TOPICAL PATCH TD SCH (10:28)
[2017-08-08] MEDS: NICOTINE POLACRILEX 2 MG GUM BUC PRN (10:29)
== END 2017-08-08 11:20 | disposition home or self-care (01) | DRG 774 ==
LOC: YASAS 18:58 → Y5N 18:59
PROVIDERS: ADMIT Psychiatry & Neurology Psychiatry; ATTEND Psychiatry & Neurology Psychiatry
PROC: HZ2ZZZZ Detoxification Services for Substance Abuse Treatment (ICD-10-PCS; principal; 2017-07-31)
DX: F10.20 Alcohol dependence, uncomplicated (principal); F14.20 Cocaine dependence, uncomplicated; F17.210 Nicotine dependence, cigarettes, uncomplicated; F19.24 Other psychoactive substance dependence with psychoactive substance-induced mood disorder; F25.9 Schizoaffective disorder, unspecified; E78.5 Hyperlipidemia, unspecified; H91.91 Unspecified hearing loss, right ear; Z59.0 Homelessness